=== PATIENT | male | born 1975 | race Two or more races ===

== ENCOUNTER 2019-02-10 18:49 | Inpatient (IN) | payer OTHER ==
[~2019-02-10] VITALS: Ht 180.3 cm; Wt 100.8 kg
--- NOTE | 2019-02-10 19:08 | PHYS DOC ---
Adult General Chief Complaint Chief Complaint: SYNCOPE HPI HPI 44-year-old male presents to the emergency Department after syncopal episode. Patient states he was bending over in the kitchen looking for something in the r efrigerator suddenly developed a feeling of couldn't catch his breath and diaphoretic and nauseous, states the room "turned over." Patient collapsed at that time. Neighbors were contacted per his son blood pressure that time was 170/103. EMS was called. Initial EKG was obtained and were concerned about V2 V3 lead however repeat is unremarkable. No evidence of chest pain as previously described. Patient states his symptoms of since resolved. Review of Systems Review of Systems Constitutional: Denies fever or chills, diaphoretic [] Respiratory: Denies cough, + shortness of breath [] Cardiovascular: No additional information not addressed in HPI [] GI: Denies abdominal pain, + nausea, no vomiting, bloody stools or diarrhea [] : Denies dysuria or hematuria [] Musculoskeletal: Denies back pain or joint pain [] Integument: Denies rash or skin lesions [] Neurologic: Denies headache, focal weakness or sensory changes [] All other systems were reviewed and found to be within normal limits, except as documented in this note. Allergies Allergies Allergies Coded Allergies Type Severity Reaction Last Updated Verified No Known Drug Allergies 02/10/19 No Physical Exam Physical Exam Constitutional: Well developed, well nourished, no acute distress, non-toxic appearance. [] HENT: Normocephalic, atraumatic, bilateral external ears normal, oropharynx moist, no oral exudates, nose normal. [] Eyes: PERRLA, EOMI, conjunctiva normal, no discharge. [] Cardiovascular:Heart rate regular rhythm, no murmur [] Lungs & Thorax: Bilateral breath sounds clear to auscultation [] Abdomen: Bowel sounds normal, soft, no tenderness, no masses, no pulsatile masses. [] Skin: Warm, dry, no erythema, no rash. [] Back: No tenderness, no CVA tenderness. [] Extremities: No tenderness, no cyanosis, no clubbing, ROM intact, no edema. [] Neurologic: Alert and oriented X 3, no focal deficits noted. [] Psychologic: Affect normal, judgement normal, mood normal. [] Current Patient Data Vital Signs Vital Signs Date Time Temp Pulse Resp B/P (MAP) Pulse Ox O2 Delivery O2 Flow Rate FiO2 02/10/19 20:24 58 18 133/82 (99) 98 Room Air 02/10/19 19:10 97.6 97.6 Lab Values Laboratory Tests Test 02/10/19 19:16 White Blood Count 8.4 x10^3/uL (4.0-11.0) Red Blood Count 5.08 x10^6/uL (4.30-5.70) Hemoglobin 15.3 g/dL (13.0-17.5) Hematocrit 43.5 % (39.0-53.0) Mean Corpuscular Volume 86 fL (79-100) Mean Corpuscular Hemoglobin 30 pg (25-35) Mean Corpuscular Hemoglobin Concent 35 g/dL (31-37) Red Cell Distribution Width 13.3 % (11.5-14.5) Platelet Count 164 x10^3/uL (140-400) Neutrophils (%) (Auto) 77 % (31-73) H Lymphocytes (%) (Auto) 15 % (24-48) L Monocytes (%) (Auto) 7 % (0-9) Eosinophils (%) (Auto) 1 % (0-3) Basophils (%) (Auto) 0 % (0-3) Neutrophils # (Auto) 6.5 x10^3/uL (1.8-7.7) Lymphocytes # (Auto) 1.2 x10^3/uL (1.0-4.8) Monocytes # (Auto) 0.6 x10^3/uL (0.0-1.1) Eosinophils # (Auto) 0.0 x10^3/uL (0.0-0.7) Basophils # (Auto) 0.0 x10^3/uL (0.0-0.2) D-Dimer (Perri) < 0.27 ug/mlFEU Sodium Level 140 mmol/L (136-145) Potassium Level 3.7 mmol/L (3.5-5.1) Chloride Level 103 mmol/L (98-107) Carbon Dioxide Level 26 mmol/L (21-32) Anion Gap 11 (6-14) Blood Urea Nitrogen 23 mg/dL (8-26) Creatinine 1.0 mg/dL (0.7-1.3) Estimated GFR (Cockcroft-Gault) 80.4 BUN/Creatinine Ratio 23 (6-20) H Glucose Level 123 mg/dL (70-99) H Calcium Level 9.3 mg/dL (8.5-10.1) Magnesium Level 2.1 mg/dL (1.8-2.4) Total Bilirubin 0.7 mg/dL (0.2-1.0) Aspartate Amino Transferase (AST) 26 U/L (15-37) Alanine Aminotransferase (ALT) 31 U/L (16-63) Alkaline Phosphatase 49 U/L (46-116) Troponin I Quantitative < 0.017 ng/mL (0.000-0.055) Total Protein 7.0 g/dL (6.4-8.2) Albumin 4.1 g/dL (3.4-5.0) Albumin/Globulin Ratio 1.4 (1.0-1.7) Laboratory Tests 02/10/19 19:16 Laboratory Tests 02/10/19 19:16 EKG EKG EKG reviewed normal sinus rhythm, heart rate 59, no evidence of acute ST or T wave change. There was some concern initially with V2 V3 however this could be repolarization no evidence of STEMI.[] Interpretation Time: Interpretation time 190 Radiology/Procedures Radiology/Procedures [] Course & Med Decision Making Course & Med Decision Making Pertinent Labs and Imaging studies reviewed. (See chart for details) []44-year-old male presents to the emergency Department after syncopal episode. Patient states he was bending over in the kitchen looking for something in the refrigerator suddenly developed a feeling of couldn't catch his breath and diaphoretic and nauseous, states the room "turned over." Patient collapsed at that time. Neighbors were contacted per his son blood pressure that time was 170/103. EMS was called. Initial EKG was obtained and were concerned about V2 V3 lead however repeat is unremarkable. No evidence of chest pain as previously described. Patient states his symptoms of since resolved. Labs, imaging reviewed. D-dimer within normal limits 0.27, troponin normal, chest x-ray negative for acute process. I also reviewed heart rate 80s, blood pressure 133 systolically. Review of telemetry reveals tachyarrhythmia 5-7 beats, narrow complex. Discussed findings with patient and family at bedside given symptoms somewhat concerning, initial evaluation and workup negative however. Given arrhythmia consider observation further echo. Will discuss with Hospitalist (DR JOHN) Vanessa Disclaimer Vanessa Disclaimer This electronic medical record was generated, in whole or in part, using a voice recognition dictation system. Departure Departure Impression: Primary Impression: Syncope and collapse Additional Impression: Tachyarrhythmia Disposition: 09 ADMITTED INPATIENT Admitting Physician: RITA Condition: STABLE Referrals: UNKNOWN PCP NAME (PCP) Problem Qualifiers DOMINGO ELY MD Feb 10, 2019 19:08
[2019-02-10 19:27] LABS: BASO % 0 % (0-3); EOS % 1 % (0-3); HEMATOCRIT 43.5 % (39.0-53.0); HEMOGLOBIN 15.3 g/dL (13.0-17.5); LYMPH # 1.2 x10^3/uL (1.0-4.8); LYMPH % 15 % (24-48); MEAN CORPUSCULAR HEMOGLOBIN 30 pg (25-35); MEAN CORPUSCULAR HGB CONC 35 g/dL (31-37); MEAN CORPUSCULAR VOLUME 86 fL (79-100); MONO # 0.6 x10^3/uL (0.0-1.1); MONO % 7 % (0-9); NEUT # 6.5 x10^3/uL (1.8-7.7); NEUT % 77 % (31-73); PLATELET COUNT 164 x10^3/uL (140-400); RED BLOOD COUNT 5.08 x10^6/uL (4.30-5.70); RED CELL DISTRIBUTION WIDTH 13.3 % (11.5-14.5); WHITE BLOOD COUNT 8.4 x10^3/uL (4.0-11.0)
--- NOTE | 2019-02-10 19:27 | RAD ---
Exam: Chest one view INDICATION: Syncope TECHNIQUE: Frontal view of the chest Comparisons: None FINDINGS: The cardiomediastinal silhouette and pulmonary vessels are within normal limits. The lung and pleural spaces are clear. IMPRESSION: No acute cardiopulmonary process. Electronically signed by: Maya Dotson MD (02/10/2019 7:24 PM) [facility]
[2019-02-10 19:39] LABS: CALCIUM 9.3 mg/dL (8.5-10.1); GFR 80.4; POTASSIUM 3.7 mmol/L (3.5-5.1)
[2019-02-10 19:45] LABS: ALBUMIN 4.1 g/dL (3.4-5.0); ALBUMIN/GLOBULIN RATIO 1.4 (1.0-1.7); TOTAL BILIRUBIN 0.7 mg/dL (0.2-1.0)
[2019-02-10] MEDS ORDERED: ONDANSETRON PF 4 MG/2 ML VIAL. IV PRN (21:30)
[2019-02-10 23:05] VITALS: BP 133/75
[2019-02-11] MEDS ORDERED: SERT100T PO (00:17)
[2019-02-11 03:44] VITALS: BP 150/66
--- NOTE | 2019-02-11 06:18 | EKG ---
[facility] [address] [place] [address] Test Date: 2019-02-10 Test Time: 19:02:10 Pat Name: MARIEL DE LA O Department: Room: 211 1 Gender: M Work Manager: : 1975 Requested By: DOMINGO ELY Order Number: [id number] Reading MD: Umberto Lira Measurements Intervals [place] Rate: 59 P: 48 AK: 174 QRS: 27 QRSD: 92 T: 6 QT: 408 QTc: 408 Interpretive Statements SINUS RHYTHM NONSPECIFIC ST-T WAVE CHANGES. Electronically Signed On 02-19-2019 16:28:50 CDT by Umberto Lira
[2019-02-11 07:00] VITALS: BP 133/72
[2019-02-11] MEDS ORDERED: FLU VAX QS 2019-20 (36MOS+)/PF 0.5 ML SYRINGE. VAX IM ONE (08:30)
--- NOTE | 2019-02-11 10:36 | PDOC2 ---
CARDIAC CONSULT DATE OF CONSULT Date of Consult DATE: 02/11/19 TIME: 10:32 REASON FOR CONSULT Reason for Consult: Syncope REFERRING PHYSICIAN Referring Physician: Dr. Goodwin SOURCE Source: Chart review, Patient HISTORY OF PRESENT ILLNESS HISTORY OF PRESENT ILLNESS This is a 44 yo male who presented secondary to syncopal episode. Patient reports he was bending over in the kitchen to get something out of the refrigerator for dinner. Suddenly began feeling short of breath, dizzy, and "felt the room turnover". Ended up collapsing on the floor. [place] nauseated and was diaphoretic. No chest pain or palpitations. Son went to get neighbor who called EMS. Has felt much better since admission. No further dizziness or sync ope since admission. Per ED documentation, patient had a short burst of narrow complex tachycardia in ED. None further since admission to the floor. Has had some mild bradycardia overnight. Lowest 44. Appropriated chronotropic response. No pauses. PAST MEDICAL HISTORY Cardiovascular: No pertinent hx Pulmonary: No pertinent hx Heme/Onc: Cancer (testicular ) Hepatobiliary: No pertinent hx Psych: Anxiety Rheumatologic: No pertinent hx Infectious disease: No pertinent hx ENT: No pertinent hx Renal/: No pertinent hx Endocrine: No pertinent hx Dermatology: No pertinent hx PAST SURGICAL HISTORY Past Surgical History: Other (orchiectomy ) FAMILY HISTORY Family History: Heart Disease (mother ), Hypertension SOCIAL HISTORY Smoke: No ALCOHOL: none Drugs: None Lives: with Family ALLERGIES ALLERGIES: Coded Allergies: No Known Drug Allergies (Unverified , 02/10/19) ROS Review of System 14 point ROS conducted with pertinent positives noted above in HPI PHYSICAL EXAM General: Alert, Oriented X3, Cooperative, No acute distress HEENT: Atraumatic, Mucous membr. moist/pink Lungs: Clear to auscultation, Normal air movement Heart: Regular rate, Normal S1, Normal S2, No murmurs Abdomen: No tenderness Extremities: No edema, Normal pulses Skin: No significant lesion Neuro: Normal speech, Sensation intact Psych/Mental Status: Mental status NL, Mood NL MUSCULOSKELETAL: No deformity VITALS/I&O VITALS/I&O: Vital Signs Date Time Temp Pulse Resp B/P (MAP) Pulse Ox O2 Delivery O2 Flow Rate FiO2 02/11/19 07:00 97.6 58 18 133/72 (92) 97 Room Air 97.6 I & O 02/10/19 02/10/19 02/11/19 15:00 23:00 07:00 Intake Total 120 ml Balance 120 ml LABS Lab: Laboratory Tests Test 02/10/19 19:16 02/11/19 01:25 02/11/19 04:30 White Blood Count 8.4 x10^3/uL (4.0-11.0) Red Blood Count 5.08 x10^6/uL (4.30-5.70) Hemoglobin 15.3 g/dL (13.0-17.5) Hematocrit 43.5 % (39.0-53.0) Mean Corpuscular Volume 86 fL (79-100) Mean Corpuscular Hemoglobin 30 pg (25-35) Mean Corpuscular Hemoglobin Concent 35 g/dL (31-37) Red Cell Distribution Width 13.3 % (11.5-14.5) Platelet Count 164 x10^3/uL (140-400) Neutrophils (%) (Auto) 77 % (31-73) H Lymphocytes (%) (Auto) 15 % (24-48) L Monocytes (%) (Auto) 7 % (0-9) Eosinophils (%) (Auto) 1 % (0-3) Basophils (%) (Auto) 0 % (0-3) Neutrophils # (Auto) 6.5 x10^3/uL (1.8-7.7) Lymphocytes # (Auto) 1.2 x10^3/uL (1.0-4.8) Monocytes # (Auto) 0.6 x10^3/uL (0.0-1.1) Eosinophils # (Auto) 0.0 x10^3/uL (0.0-0.7) Basophils # (Auto) 0.0 x10^3/uL (0.0-0.2) D-Dimer (Perri) < 0.27 ug/mlFEU Sodium Level 140 mmol/L (136-145) Potassium Level 3.7 mmol/L (3.5-5.1) Chloride Level 103 mmol/L (98-107) Carbon Dioxide Level 26 mmol/L (21-32) Anion Gap 11 (6-14) Blood Urea Nitrogen 23 mg/dL (8-26) Creatinine 1.0 mg/dL (0.7-1.3) Estimated GFR (Cockcroft-Gault) 80.4 BUN/Creatinine Ratio 23 (6-20) H Glucose Level 123 mg/dL (70-99) H Calcium Level 9.3 mg/dL (8.5-10.1) Magnesium Level 2.1 mg/dL (1.8-2.4) Total Bilirubin 0.7 mg/dL (0.2-1.0) Aspartate Amino Transferase (AST) 26 U/L (15-37) Alanine Aminotransferase (ALT) 31 U/L (16-63) Alkaline Phosphatase 49 U/L (46-116) Troponin I Quantitative < 0.017 ng/mL (0.000-0.055) < 0.017 ng/mL (0.000-0.055) < 0.017 ng/mL (0.000-0.055) Total Protein 7.0 g/dL (6.4-8.2) Albumin 4.1 g/dL (3.4-5.0) Albumin/Globulin Ratio 1.4 (1.0-1.7) Thyroid Stimulating Hormone (TSH) 0.678 uIU/mL (0.358-3.74) Laboratory Tests 02/10/19 19:16 Laboratory Tests 02/10/19 19:16 ASSESSMENT/PLAN ASSESSMENT/PLAN 1. Syncope; most probably vasovagal 2. Tachyarrhythmia; burst of narrow complex tachycardia noted in ED. Rhythm strip not available. None further since admission to [facility]. 3. Sinus bradycardia. Mild bradycardiac overnight. lowest 44. Appropriated chronotropic response. No pauses Recommendations Echo to assess LV systolic function Lipids, TSH Monitor tele Consider outpatient event monitor and ischemic workup Supportive care JOSE NOONAN APRN Feb 11, 2019 10:36
[2019-02-11 11:14] LABS: CHOLESTEROL/HDL RATIO 6.8
[2019-02-11] MEDS ORDERED: IOHEXOL 350 MG/ML 100 ML VIAL. IV ONE (11:45)
--- NOTE | 2019-02-11 11:49 | NUR ---
SS following for discharge planning. SS reviewed pt chart. Pt is from home with spouse and is currently on room air. SS will continue to follow for discharge planning.
[2019-02-11] MEDS ORDERED: CONTRAST GIVEN. MC PRN (12:00)
--- NOTE | 2019-02-11 12:02 | HP ---
ADMIT DATE: 02/10/2019 CHIEF COMPLAINT: Syncope. 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 He presented with syncopal episode. He was in the refrigerator and passed out. He was sweating. He felt very clammy. When his arrived, he was white. They called the ambulance. He was brought to the ER for evaluation where he has improved, but we are concerned that he could have had an arrhythmia or maybe even a pulmonary embolism. I have discussed the case with ER physician. We are going to admit the patient. I am going to get a CAT scan of his chest and consult Pulmonary and Cardiology. PAST MEDICAL HISTORY: Benign. ALLERGIES: None. FAMILY HISTORY: Hypertension. SOCIAL HISTORY: Does not drink, smoke or take drugs. He is in the army. He is . MEDICATIONS: Reviewed, please refer to the MRAD. REVIEW OF SYSTEMS: GENERAL: No history of weight change, weakness or fevers. SKIN: No bruising, hair changes or rashes. EYES: No blurred, double or loss of vision. NOSE AND THROAT: No history of nosebleeds, hoarseness or sore throat. HEART: No history of palpitations, chest pain or shortness of breath on exertion. LUNGS: Denies cough, hemoptysis, wheezing or shortness of breath. GASTROINTESTINAL: Denies changes in appetite, nausea, vomiting, diarrhea or constipation. GENITOURINARY: No history of frequency, urgency, hesitancy or nocturia. NEUROLOGIC: Denies history of numbness, tingling, tremor or weakness. PSYCHIATRIC: No history of panic, anxiety or depression. ENDOCRINE: No history of heat or cold intolerance, polyuria or polydipsia. EXTREMITIES: Denies muscle weakness, joint pain, pain on walking or stiffness. PHYSICAL EXAMINATION: VITALS: Within normal limits and are stable. GENERAL: No apparent distress. Alert and oriented. HEENT: Head is normocephalic, atraumatic, pupils were equally round and reactive to light and accommodation. NECK: Supple, no JVD, no thyromegaly was noted. LUNGS: Clear to auscultation in all lung shell without rhonchi or wheezing. HEART: RRR, S1, S2 present. Peripheral pulses intact, no obvious murmurs were noted. ABDOMEN: Soft, nontender. Positive bowel sounds no organomegaly, normal bowel sounds. EXTREMITIES: Without any cyanosis, clubbing, or edema. Pedal pulses intact, Homans sign is negative. NEUROLOGIC: Normal speech, normal tone. A & O x3, moves all extremities, no obvious focal deficits. PSYCHIATRIC: Normal affect, normal mood. Stable. SKIN: No ulcerations or rashes, good skin turgor, no jaundice. VASCULAR: Good capillary refill, neurovascular bundle appears to be intact. LABORATORY DATA: Hematology is normal. Electrolytes are normal. Troponin is 0. Chest x-ray is negative. ASSESSMENT AND PLAN: Syncopal episode, suspect possible vasovagal versus arrhythmia versus pulmonary embolism. The patient is being admitted. We will consult Cardiology and Pulmonary. Check a CT of the chest. Check lower extremity Dopplers, cardiac monitoring, serial enzymes, serial EKGs, and echocardiogram. GEOFF JOHN DO DR: BELL/michael JOB#: [id number] / [id number]
--- NOTE | 2019-02-11 12:09 | CARD ---
MR#: [id number] Date of Study: 02/11/2019 Ordering Physician: ELZA BLEDSOE, Referring Physician: ELZA BLEDSOE Tech: Hilaria Perez RDCS APPROVED REPORT EXAM: Two-dimensional and M-mode echocardiogram with Doppler and color Doppler. Other Information Quality : Good INDICATION Syncope 2D DIMENSIONS RVDd2.9 (2.9-3.5cm)Left Atrium(2D)3.5 (1.6-4.0cm) IVSd0.9 (0.7-1.1cm)Aortic Root(2D)2.8 (2.0-3.7cm) LVDd4.6 (3.9-5.9cm)LVOT Diameter2.2 (1.8-2.4cm) PWd0.9 (0.7-1.1cm)LVDs2.7 (2.5-4.0cm) FS (%) 30.0 %SV72.3 ml LVEF(%)60.0 (>50%) Aortic Valve AoV Peak Edu.117.9cm/sAoV VTI21.3cm AO Peak GR.5.6mmHgLVOT Peak Edu.96.8cm/s LVOT VTI 18.61cmAO Mean GR.3mmHg BEVERLEY (VMAX)3.51fx3CRA (VTI)3.37cm2 Mitral Valve MV E Kqbtdodm76.8cm/sMV DECEL LLXD241dw MV A Rerfxvgn89.8cm/sMV SCY32oe E/A Ratio1.1MVA (PHT)3.33cm2 TDI E/Lateral E'4.4E/Medial E'6.3 Tricuspid Valve TR P. Ebangjnh875jo/sRAP ZXAULLNO1lkCn TR Peak Gr.99tkAsBHZF53zhMt Pulmonary Vein S1 Xmtggdow25.7cm/sD2 Ywuabpou86.5cm/s LEFT VENTRICLE The left ventricle is normal size. There is normal left ventricular wall thickness. The left ventricu lar systolic function is normal and the ejection fraction is within normal range. The Ejection Fracti on is 55-60%. There is normal LV segmental wall motion. Transmitral Doppler flow pattern is Grade II- pseudonormal filling dynamics. RIGHT VENTRICLE The right ventricle is normal size. The right ventricular systolic function is normal. ATRIA The left atrium size is normal. The right atrium size is normal. The interatrial septum is intact wit h no evidence for an atrial septal defect or patent foramen ovale as noted on 2-D or Doppler imaging. AORTIC VALVE The aortic valve is normal in structure and function. Doppler and Color Flow revealed no significant aortic regurgitation. There is no significant aortic valvular stenosis. MITRAL VALVE The mitral valve is normal in structure and function. There is no evidence of mitral valve prolapse. There is no mitral valve stenosis. Doppler and Color-flow revealed trace mitral regurgitation. TRICUSPID VALVE The tricuspid valve is normal in structure and function. Doppler and Color Flow revealed trace to mil d tricuspid regurgitation. The PA pressure was estimated at 29 mmHg. There is no tricuspid valve sten osis. PULMONIC VALVE Doppler and Color Flow revealed trace to mild pulmonic valvular regurgitation. There is no pulmonic v alvular stenosis. GREAT VESSELS The aortic root is normal in size. The ascending aorta is normal in size. The IVC is normal in size a nd collapses >50% with inspiration. PERICARDIAL EFFUSION There is no evidence of significant pericardial effusion. Critical Notification Critical Value: No <Conclusion> The left ventricular systolic function is normal and the ejection fraction is within normal range. Th e Ejection Fraction is 55-60%. There is normal LV segmental wall motion. Signed by : Richi Deras, Electronically Approved : 02/11/2019 12:08:53
--- NOTE | 2019-02-11 12:17 | CONS ---
DATE OF CONSULTATION: PULMONARY CONSULTATION: ATTENDING PHYSICIAN: Jose Luis Steele DO. REASON FOR CONSULTATION: Syncope. 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 He said he exercises regularly and he may not be drinking enough water. He was bending over in the kitchen looking for something in the refrigerator, suddenly he felt lightheaded and dizzy and then diaphoretic and nauseous and then he had a syncopal episode. When the neighbors were contacted per his son, his blood pressure was actually high at 170. He had no chest pain. He said he never had any of these episode happened before. No history of thromboembolic disease. He has history of testicular cancer, which was treated in the 30s. The states that he had some pulmonary problems after he got the chemo, but no history of PE. His chest x-ray did not reveal any acute infiltrates and he had an echocardiogram done today, which has not been read yet. PAST MEDICAL HISTORY: Significant for history of testicular cancer, history of orchiectomy, and anxiety. PAST SURGICAL HISTORY: Orchiectomy. ALLERGIES: None. MEDICATIONS: Reviewed as listed in the MRAD. REVIEW OF SYSTEMS: Twelve-point system obtained. Pertinent positives discussed in my history of present illness, otherwise noncontributory. All systems that were negative were reviewed as well. SOCIAL HISTORY: Nonsmoker, nonalcoholic. He is in the army active duty. PHYSICAL EXAMINATION: VITAL SIGNS: Stable. Pulse ox 97% on room air, afebrile. NECK: Supple. LUNGS: Clear. CARDIOVASCULAR: With a regular rate. ABDOMEN: Soft, nontender. EXTREMITIES: With no pitting edema. LABORATORY DATA: D-dimer was less than 0.27. BUN and creatinine normal. IMPRESSION: 1. Syncopal episode while bending over to get something from the refrigerator. Could be vasovagal. He has not been drinking enough water while exercising aggressively. The thromboembolic disease is clinically felt less likely in the setting of a normal D-dimer. CTA chest has been ordered and we will follow on that. 2. No significant otherwise pulmonary history. RECOMMENDATIONS: 1. Follow the results of CTA chest. 2. If CTA chest is negative, then I will recommend having a stress test as an outpatient per Cardiology and follow any other workup per Cardiology. 3. The patient could be discharged from a pulmonary standpoint if the CTA chest is negative. Discussed with the patient's and RN. ALEKSANDER MEDRANO MD DR: ARA/michael JOB#: [id number] / [id number]
[2019-02-11 12:18] VITALS: BP 131/72
--- NOTE | 2019-02-11 15:05 | RAD ---
Examination: CT ANGIOGRAPHY CHEST History: Syncope Comparison/Correlation: 02/11/2019 AP view of the chest Findings: Axial images of chest were obtained following IV contrast. Pulmonary arteriography protocol utilized with maximum intensity projection images obtained and sagittal as well as coronal reformatted images provided. Pulmonary arterial vasculature is normal with no thromboembolic disease. No enlarged thoracic lymph nodes. No pleural or pericardial effusions. Small sliding hiatal hernia is present. No dense consolidation or pneumothorax. Bony structures are unremarkable for the patient's age. The tracheobronchial tree is unremarkable. Minimal linear atelectasis, scarring or possibly infiltrate at the right lateral mid thoracic level is present best seen on axial image 79 of series 3. It measures up to approximately 0.8 cm transverse. Gallbladder fossa is unremarkable. Spleen is not fully imaged for purposes of this exam but may be enlarged. Adrenal glands are normal. Bony structures are unremarkable for patient age. Impression: No pulmonary arterial thromboembolic disease. Linear atelectasis, scarring or infiltrate noted at the lateral right lower lung field. Interval follow-up in 6 months to assess stability or resolution is recommended. Small hiatal hernia. PQRS Compliance Statement: One or more of the following individualized dose reduction techniques were utilized for this examination: 1. Automated exposure control 2. Adjustment of the mA and/or kV according to patient size 3. Use of iterative reconstruction technique Electronically signed by: Shai Orosco MD (02/11/2019 3:02 PM) [facility]
--- NOTE | 2019-02-11 16:01 | NUR ---
Discharge Note: MARIEL DE LA O Discharge instructions and discharge home medications reviewed with Patient and a copy given. All questions have been answered and understanding verbalized. The following instructions and handouts were given: syncope, cardiac event monitor Patient discharged to home or self care with spouse via ambulated
--- NOTE | 2019-02-16 08:15 | DS ---
DATE OF DISCHARGE: 02/11/2019 ADMISSION DIAGNOSIS: Syncope. DISCHARGE DIAGNOSIS: Resolving syncope. HOSPITAL COURSE: The patient is a pleasant middle-aged male, who presented with a syncopal episode. He was admitted. We checked serial enzymes, serial EKGs. We consulted Neurology and Cardiology. In the end, we really did not find much. We felt like this was possibly vasovagal. We discharged to home with close outpatient followup. DISPOSITION: Home. ACTIVITY: As tolerated. DIET: Low sodium. MEDICATIONS: Please see the MRAD. TOTAL TIME: 32 minutes. GEOFF JOHN DO DR: BELL/michael JOB#: [id number] / [id number]
== END 2019-02-11 15:50 | disposition home or self-care (01) | DRG 312 ==
LOC: EDBD 18:49 → ER 18:49 → OBSVTOIN 20:54 → 2 NORTH 20:54
PROVIDERS: ADMIT Internal Medicine; ATTEND Internal Medicine
DX: R55 Syncope and collapse (principal); F41.9 Anxiety disorder, unspecified; Z85.47 Personal history of malignant neoplasm of testis; Z90.79 Acquired absence of other genital organ(s); Z82.49 Family history of ischemic heart disease and other diseases of the circulatory system
CPT/HCPCS: 36415; 71045; 71275; 80053; 80061; 83735; 84443; 84484; 85025; 85379; 90471; 90686; 93005; 93306; Q9967; G0378